=== PATIENT | female | born 2000 | race Caucasian/White ===

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

== ENCOUNTER → 2021-03-20 13:14 | Outpatient (CLI) | payer BC, SELFPAY ==
--- NOTE | 2021-03-20 13:18 | XR_ITS ---
PROCEDURE: XR CHEST 2V CLINICAL HISTORY: PRECORDIAL PAIN COMPARISON: No exams were available for comparison FINDINGS: The cardiomediastinal silhouette and pulmonary vascularity are within normal limits. The lungs are clear without infiltrates, suspicious nodules, or pleural effusions. No acute bony abnormalities. IMPRESSION: No acute findings. Dictated by: Miguelito Suarez MD 03/20/2021 13:40 Miguelito Suarez MD in [facility] 03/20/2021 13:40
== END ==
PROVIDERS: PCP Nurse Practitioner Family; Visit Provider Nurse Practitioner Family
DX: R07.2 Precordial pain (principal)
CPT/HCPCS: 71046

== ENCOUNTER → 2021-04-02 13:17 | Outpatient (CLI) | payer BC, SELFPAY ==
--- NOTE | 2021-04-02 13:21 | US_ITS ---
PROCEDURE: US BREAST RT COMPLETE CLINICAL INDICATION: RT BREAST LUMP COMPARISON: CR XR CHEST 2V from 03/20/2021 FINDINGS: Palpable abnormality of the medial aspect of the right breast. The area of palpable concern represents a prominent rib end. No suspicious nodules or cyst evident. IMPRESSION: No suspicious breast nodules evident. Palpable abnormality corresponds to prominent rib end Dictated by: Miguelito Suarez MD 04/07/2021 14:05 Miguelito Suarez MD in [facility] 04/07/2021 14:05
== END ==
PROVIDERS: PCP Nurse Practitioner Family; Visit Provider Nurse Practitioner Family
DX: N63.12 Unspecified lump in the right breast, upper inner quadrant (principal)
CPT/HCPCS: 76641